=== PATIENT | female | born 1960 | race Caucasian/White ===

== ENCOUNTER → 2017-01-16 | Outpatient (CLI) | payer OTHER | END | disposition home or self-care (01) | LOC: PF 09:34 | PROVIDERS: ATTEND Surgery | DX: J45.909 Unspecified asthma, uncomplicated (principal) | CPT/HCPCS: 94060; 94729 ==

== ENCOUNTER → 2019-07-31 | Day surgery (SDC) | payer MEDICARE ==
[~2019-07-31] MED LIST: ALBU2.5V14 NEB; ALBU2.5V8 INH; ALPR1TAB6 PO; ATOR20TA58 PO; AZIT250T PO; BUDE10.2 IH; CETI10TA22 PO; GLIM1TAB3 PO; HYDR-2765 PO; IV RINGERS,LACTATED 1000ML 1,000 ML IV ONE; IV RINGERS,LACTATED 1000ML 1,000 ML IV SCH; LISI10TA2 PO; LORA10TA3 PO; METF500T16 PO; PROPOFOL 40 ML IV ONE
--- NOTE | 2019-07-31 10:51 | PREOP HP ---
DATE OF SERVICE: DATE OF PROCEDURE: 07/31/2019 REQUESTING PHYSICIAN: Misty Callejas PA-C PRIMARY CARE PHYSICIAN: Misty Callejas PA-C REASON FOR PROCEDURE: History of polyps. HISTORY OF PRESENT ILLNESS: This is a 59-year-old female with a history of polyps, who is here for a surveillance colonoscopy. PAST MEDICAL HISTORY: 1. Hypercholesterolemia. 2. Hypertension. 3. COPD. 4. Asthma. 5. Sleep apnea. 6. Appendectomy. 7. Cholecystectomy. 8. Hysterectomy. 9. Fibromyalgia. 10. Diabetes. 11. Anxiety. 12. Smoking. MEDICATIONS: MAR reviewed. ALLERGIES: MAR reviewed. FAMILY MEDICAL HISTORY: No family history of colon cancer. SOCIAL HISTORY: No history of tobacco. REVIEW OF SYSTEMS: A 13-point review of systems was done and is positive as per HPI, otherwise negative. PHYSICAL EXAMINATION: VITAL SIGNS: She is afebrile. Vital signs are stable. GENERAL: She is an obese female, in no apparent distress. HEENT: Oropharynx is clear. CARDIOVASCULAR: S1, S2. LUNGS: Clear. ABDOMEN: Normoactive bowel sounds, soft, nontender, nondistended. EXTREMITIES: No edema. NEUROLOGIC: Awake, alert and oriented x 3. ASSESSMENT AND PLAN: History of polyps. The risks and benefits of colonoscopy including bleeding, perforation, non-diagnosis and perforation were explained and she has agreed to proceed. DEVIN HOUSTON MD DR: CONSTANCE/arpit JOB#: [id number] / [id number]
[2019-07-31 11:34] VITALS: BP 125/66
--- NOTE | 2019-08-01 14:07 | PATHOLOGY ---
[facility] Accession Number: [id number] . 01 Material submitted: . colon - SIGMOID POLYPS. Modifiers: sigmoid . 01 Clinical history: . hx polyps . 02 Diagnosis: Colon, sigmoid, biopsy: - Hyperplastic polyps, two. (SKM:[facility]; 08/01/2019) P 08/01/2019 1335 Local . 02 Electronically signed: . Enoch Ramos MD, Pathologist NPI- [id number] . 01 Gross description: . The specimen is received in formalin, labeled "Theno, Teralain, sigmoid polyps" and consists of 2 polypoid segments of pink-edmond tissue measuring 0.4 x 0.4 x 0.3 cm and 0.8 x 0.8 x 0.5 cm. The margins are inked black. The smaller is bisected and the larger is trisected. They are entirely submitted in A1. (SDY; 07/31/2019) SYU/SYU 07/31/2019 1616 Local . 02 Pathologist provided ICD-10: K63.5 . 02 CPT . 853968 Specimen Comment: A courtesy copy of this report has been sent to Specimen Comment: [phone], . Specimen Comment: Report sent to / DR COLEMAN Performed at: 01 [facility] [address], [place] [id number] MD Cortez Calvillo MD Phone: [phone] Performed at: 02 [facility] [address] [place], [place] [id number] MD Carlin Griggs MD Phone: [phone]
== END | disposition home or self-care (01) ==
LOC: SURG 09:19
PROVIDERS: ATTEND Internal Medicine Gastroenterology
DX: Z09 Encounter for follow-up examination after completed treatment for conditions other than malignant neoplasm (principal); K63.5 Polyp of colon; K57.30 Diverticulosis of large intestine without perforation or abscess without bleeding; K64.0 First degree hemorrhoids; I10 Essential (primary) hypertension; E78.00 Pure hypercholesterolemia, unspecified; J44.9 Chronic obstructive pulmonary disease, unspecified; M79.7 Fibromyalgia; E11.9 Type 2 diabetes mellitus without complications; G47.30 Sleep apnea, unspecified; Z87.891 Personal history of nicotine dependence; Z98.890 Other specified postprocedural states; Z90.49 Acquired absence of other specified parts of digestive tract; Z86.010 Personal history of colon polyps; Z79.84 Long term (current) use of oral hypoglycemic drugs
CPT/HCPCS: 45385; 88305; J2704; 45382